=== PATIENT | male | born 2000 | race Caucasian/White ===

== ENCOUNTER → 2023-11-22 07:14 | Day surgery (SDC) | payer BC, SELFPAY | LOC: GI 07:14 | PROVIDERS: ATTENDING PHYSICIAN Internal Medicine Gastroenterology | DX: Z12.11 Encounter for screening for malignant neoplasm of colon (principal); K64.8 Other hemorrhoids; Z86.010 Personal history of colon polyps | CPT/HCPCS: G0105 ==

== ENCOUNTER 2024-11-14 04:35 | Emergency (ER) | payer BC, SELFPAY ==
[2024-11-14 04:36] VITALS: BP 142/81
--- NOTE | 2024-11-14 04:56 | ED.GENMED ---
History of Present Illness
General
Chief Complaint: Abdominal Pain
Source: patient and family
Time Seen by Provider: 11/14/24 04:42
History of Present Illness
History of Present Illness:
This patient is a very pleasant 23-year-old male who went to bed feeling his usual self. He awoke at 2 AM with complaints of periumbilical abdominal pain that was rated as 9 out of 10, now 6 out of 10. The pain is without radiation, exacerbating,
relieving factors. He denies associated nausea, vomiting, fever, chest pain, back pain, urinary symptoms. He said initially with the pain he felt like he could not catch his breath but he thinks that was related to his pain. He denies dyspnea at
this time. He denies any other complaints
Past History
Past History
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
ED Past Surgical History: Orthopedic
Social History
Tobacco: Former smoker
Alcohol: Occasional
Drug: None
Personal: Single
Living: with family
Phy Exam
Physical Exam
Physical Exam:
GENERAL: Alert , appears mildly uncomfortable
EYE: pupils equal and reactive
NECK: Supple, no significant adenopathy.
ENT: o/p clr, mmm.
CARDIAC: Regular rate and rhythm .
LUNGS: Clear breath sounds bilaterally, no acute respiratory distress, no wheezes/rales/rhonchi
ABDOMEN: Soft, without focal tenderness, no r/g, no cvat
NEUROLOGICAL: Alert and oriented, no focal neuro deficits
SKIN: Warm and dry, skin intact.
MUSCULOSKELETAL: No edema, well perfused.
PSYCH: Normal and appropriate interaction.
Course
Orders/Labs/Results
Orders:
Orders
11/14/24 04:55
Cardiac Monitoring- Treatment ONCE
0.9% Sodium Chloride 1000 ml [Nss] 1,000 ml IV BOLUS
11/14/24 04:56
Electrocardiogram (*1) Stat
Reason for Study: Abdominal Pain
CT Abd/Pel (IV only)-DH only Urgent
Comment:
Reason For Exam: periumbilical pain
EKG- Treatment ONCE
11/14/24 05:03
Complete Blood Count/No Diff Urgent
Comprehensive Metabolic Panel Urgent
Lipase Urgent
11/14/24 05:39
Ketorolac [Toradol] 15 mg IV NOW STA
Abnormal Lab Results
11/14/24
05:03
MCH 31.3 H pg
(27.0-31.0)
Glucose 106 H mg/dl
(70-99)
11/14/24 05:03
11/14/24 05:03
Vital Signs
Initial and Last Documented VS:
Initial Vital Signs
Temp Pulse Resp BP Pulse Ox
98.6 F 106 18 142/81 99
11/14/24 04:36 11/14/24 04:36 11/14/24 04:36 11/14/24 04:36 11/14/24 04:36
Last Documented Vital Signs
Temp Pulse Resp BP Pulse Ox
98.6 F 85 15 133/75 99
11/14/24 04:36 11/14/24 06:06 11/14/24 05:50 11/14/24 06:05 11/14/24 04:36
*Critical Care Note
Total Time (30-74mins, 75-104mins- exclusive of procedures): Not Applicable
Update Note
Update Note:
Patient presents to the Emergency Department with __abdominal pain
Number and Complexity of Problems Addressed at the Encounter
� Chronic conditions affecting care:
� Acute Exacerbation and/or Progression of Chronic Illness:
� Differential Diagnosis includes: But not limited to cholelithiasis, appendicitis, kidney stone, hernia, etc. etc.
Amount and/or Complexity of Data to be Reviewed and Analyzed
� I performed an independent evaluation of and my interpretation is:
EKG:
CT:READ BY VISION, appendix no visualized, no bowel obstruction, stomach decompressed, no cholecystitis or pancreatitis, no obstr renal stone, aa nl size, no ff or free air.
Xrays:
Laboratory Studies:generlaly unremkarable.
Other:
� Review of other/old records reveals:
� Clinical information was obtained by an independent historian: Mother who is bedside
� Prescriptions/Medications Considered but not given:
� Further testing considered but not performed:
Risk of Complications and/or Morbidity or Mortality of Patient Management
� Social determinants of health affecting care:
� Discussion with other providers (PCP, Hospitalists, Consultants, etc):
� Escalation of care including admission/observation vs risk of discharge considered: 4:58 AM patient declines pain medication at this time. Workup in progress.
Pt received one dose of toradol here, pain improved, feels much better. ON repeat exam, abd soft and nontender, no r/g. Hilhgly doubt acute process such as appy etc. No n/v/f/cp etc. D/w pt and mom results, did not find specific etiology for
sxs, import of observation closely today and rted precautions.
ED Attending Note
-
Portions of this chart may have been created with voice recognition software.� Occasional wrong word or��sound alike� substitutions may have occurred due to the inherent limitations of voice recognition software.
Discharge Plan
Departure
Patient Disposition: Home (Routine Discharge)
Date of Disposition: 11/14/24
Time of Disposition: 06:31
Patient with high blood pressure during this ER visit?: Yes
Condition: Good
Discharge Problem:
Abdominal pain
Instructions: Abdominal Pain, BLOOD PRESSURE
Prescriptions:
No Action
No Current Medications
0
Referrals:
Gavin,Anita Finkelman, PA-C [Family Provider] - Next open appointment
Activity Restrictions/Additional Instructions:
IF YOU DEVELOP CHEST PAIN, TROUBLE BREATHING, FEVER, INCREASING/NEW/PERSISTENT PAIN, VOMITING, OR OTHER WORRISOME SIGNS, GO TO THE ER IMMEDIATELY!
Interventions
Interventions:
*Risk Screen - Suicide Last Done: 11/14/24 04:36
*General Assessment Last Done: 11/14/24 04:36
*Neglect/Abuse Screening Last Done: 11/14/24 04:36
ED- Fall Risk Assessment Last Done: 11/14/24 05:12
*ED COVID-19 Vaccine History Last Done: 11/14/24 04:36
*Nursing Disposition Last Done: 11/14/24 06:48
WP-Hcwdtc-Lsbovgcqpk Assessment Last Done: 11/14/24 05:12
Discharge Date and Time
Discharge Date/Time: 11/14/24 06:48
Print Language: [place]ESE
[2024-11-14] MEDS: NSS 1000 IV (05:04)
--- NOTE | 2024-11-14 05:15 | EDRN ---
Pt went to bed feeling fine and woke around 0200 with periumbilical pain rated as 9/10 and described as sharp. Pt took pepto-bismol which lessened his pain. Pain waxes and wanes, no radiation. Pt felt he could not catch his breath initially but
relates that to the initial pain and reports no sob now. Pt felt chills. Last BM yesterday. Pt denies cp, sob, n/v/d/c, urinary symptoms, fever/cough, weakness, dizziness, hx similar symptoms. Pain is now 6/10 and pt declines pain medication.
[2024-11-14 05:21] VITALS: BP 129/77
[2024-11-14 05:27] LABS: Hematocrit 45.6 % (39.0-52.0); Hemoglobin 16.1 g/dL (13.0-18.0); Mean Corp Hgb Conc. 35.3 g/dL (33.0-37.0); Mean Corpuscular Hgb 31.3 pg (27.0-31.0); Mean Corpuscular Volume 88.5 fL (80.0-94.0); Mean Platelet Volume 9.7 fL (7.4-10.4); Platelet Count 237 10^3/uL (130-400); Red Blood Cell Count 5.15 10^6/uL (4.70-6.10); Red Cell Dist. Width 11.5 % (11.5-14.5); White Blood Cell Count 10.4 10^3/uL (4.8-10.8)
[2024-11-14 05:42] LABS: ALT (SGPT) 39 U/L (0-50); AST (SGOT) 48 U/L (17-59); Albumin 4.7 g/dl (3.5-5.0); Alkaline Phosphatase 67 U/L (38-126); Blood Urea Nitrogen 18 mg/dl (9-20); Calcium 9.7 mg/dl (8.4-10.2); Carbon Dioxide 28 mmol/L (22-30); Chloride 102 mmol/L (98-107); Estimated Creatinine Clearance 106 ml/min; Glucose 106 mg/dl (70-99); Lipase 91 U/L (23-300); Potassium 3.9 mmol/L (3.5-5.1); Sodium 138 mmol/L (135-145); Total Bilirubin 0.8 mg/dl (0.2-1.3); Total Protein 7.2 g/dl (6.3-8.2); eGFR > 60.00
[2024-11-14] MEDS: TORADOL 15 MG IV (05:43)
[2024-11-14 06:05] VITALS: BP 133/75
== END 2024-11-14 06:48 | disposition home or self-care (01) ==
LOC: EMR 04:35
PROVIDERS: EMERGENCY PHYSICIAN Emergency Medicine; FAMILY PHYSICIAN Student in an Organized Health Care Education/Training Program
DX: R10.33 Periumbilical pain (principal); R03.0 Elevated blood-pressure reading, without diagnosis of hypertension; Z87.891 Personal history of nicotine dependence
CPT/HCPCS: 96374; 96361; 99284; 74177; 80053; 83690; 85027; 93005; Q9967